=== PATIENT | female | born 1985 ===

== ENCOUNTER 2017-07-15 16:22 | Emergency (ER) | payer SELFPAY ==
[2017-07-15 17:11] VITALS: BMI 28.6
[2017-07-16 05:44] VITALS: BP 139/75; PULSE 80; RESP 18; TEMP 98.2; O2SAT 100
== END 2017-07-15 18:05 | disposition home or self-care (01) ==
LOC: H.EROB2 16:22
DX: O36.4XX0 Maternal care for intrauterine death, not applicable or unspecified (principal); Z3A.20 20 weeks gestation of pregnancy